=== PATIENT | female | born 1985 | race Caucasian/White ===

== ENCOUNTER 2016-07-08 07:55 | Day surgery (SDC) | payer OTHER ==
[~2016-07-08 07:55] MED LIST: PROPOFOL INJ 200 MG/20 ML VIAL IV ONE
[2016-07-08 09:38] VITALS: BP 108/75
--- NOTE | 2016-07-08 13:30 | Operative Report ---
Operative Report DATE OF SURGERY: 07/08/16 Operative Report: The risks, benefits and alternatives of the procedure including risks of bleeding, perforation requiring surgery I explained to the patient detail and informed consent is obtained. Patient is taken back to the endoscopy suite and placed in a left, lateral decubital position. Timeout is called. A rectal examination was done which did not reveal any masses, tears or fissures. Propofol medication is administered. An Olympus videoscope was inserted into the patient's rectum. The scope was then gradually advanced all the way to the cecum. The cecum was identified by the usual anatomical landmarks including the ileocecal valve as well as the appendiceal office. Photo documentations obtained. Prep is good. The scope was then sequentially pulled back creative rest segments of the colon including the ascending colon, hepatic flexure, transverse colon, splenic flexure, descending colon and finally into the rectosigmoid portions of the colon. Retroflexion maneuvers performed. PREOPERATIVE DIAGNOSIS: Change of bowel habits. Blood in stool. POSTOPERATIVE DIAGNOSIS: Mild right-sided inflammation status post biopsy. Terminal ileum does appear to be normal. No acute bleeding is noted. No masses , AVMs, diverticulosis is noted. OPERATION: Colonoscopy with biopsy. SURGEON: [place] CANO ANESTHESIA: LMAC TISSUE REMOVED OR ALTERED: Right-sided mucosal specimens obtained rule out for lymphocytic, collagenous, lymphocytic colitis. COMPLICATIONS: None. ESTIMATED BLOOD LOSS: none. INTRAOPERATIVE FINDINGS: Colonic mucosa does appear to be normal. Both the haustra and blood vessel architecture does appear to be normal. Biopsies obtained to rule out for colitis, possible Crohn's disease. No evidence of AVMs , diverticulosis, or polyps noted. PROCEDURE: Patient tolerated procedure well. No immediate postprocedure complications are noted. Patient is discharged in good condition. Discharge date 07/08/2016. Discharge diet: Regular. Discharge activity: Regular. 2-3 week follow-up to discuss findings. Patient is instructed to call the office or proceed to the emergency room should there be any further polyps or questions. We'll await biopsies.
== END 2016-07-08 09:39 | disposition home or self-care (01) ==
LOC: END 07:55
PROVIDERS: ATTEND Internal Medicine Gastroenterology
PROC: 0DBF8ZX Excision of Right Large Intestine, Via Natural or Artificial Opening Endoscopic, Diagnostic (ICD-10-PCS; 2016-07-08)
PROC: 0DBB8ZX Excision of Ileum, Via Natural or Artificial Opening Endoscopic, Diagnostic (ICD-10-PCS; principal; 2016-07-08 09:00)
DX: K52.9 Noninfective gastroenteritis and colitis, unspecified (principal); K92.1 Melena
CPT/HCPCS: 45380; 88305 ×2; J2704; 810